=== PATIENT | male | born 1995 | race Caucasian/White ===

== ENCOUNTER 2017-05-10 21:51 | Emergency (ER) | payer OTHER ==
[~2017-05-10] VITALS: Ht 172.7 cm; Wt 56.5 kg
[2017-05-10 21:58] VITALS: BP 151/74; PULSE 99; RESP 14; TEMP 98.8; O2SAT 100
[2017-05-10] MEDS ORDERED: LISD1CAP PO (22:17)
[2017-05-10] MEDS ORDERED: LEXA5TAB PO (22:17)
[2017-05-10] MEDS ORDERED: ALPR.25 PO (22:17)
[2017-05-10] MEDS ORDERED: LOPE-1 PO (22:17)
[2017-05-10] MEDS ORDERED: ACETAMINOPHEN/HYDROcodone 325 MG/5 MG TAB PO ONE (22:30)
[2017-05-10] MEDS ORDERED: IBUP800T23 PO (22:35)
--- NOTE | 2017-05-10 22:35 | PD ---
HPI Chief Complaint: Pain: Acute or Chronic Time Seen by Provider: 22:13 Travel History International Travel<30 days: No Contact w/Intl Traveler<30days: No Traveled to known affect area: No History of Present Illness HPI 21-year-old male presents to the emergency room for evaluation of bilateral wrist and hand pain for the past 2 months. Pain is localized to the bilateral knuckles with numbness and tingling in the tips of his fingers. Patient has been diagnosed with carpal tunnel syndrome and saw an orthopedist several months ago who prescribed Tylenol 3. States Tylenol No. 3 helps him significantly. He has not taken anything else. Pain is worse at night and keeps him up. He states it seems to have been exacerbated over the past 2 days with all the driving he has been doing. He works as a arc and gas welder. PFSH Past Medical History ADHD: Yes Anxiety: Yes Depression: Yes Gastrointestinal Disorders: Yes (IBS) Tetanus Vaccination: < 5 Years Influenza Vaccination: No Social History Alcohol Use: Yes (SOCIAL) Tobacco Use: Yes (1 PPD) Substance Use: No Allergies-Medications (Allergen,Severity, Reaction): Coded Allergies: tramadol (Verified Allergy, Intermediate, Diarrhea, 05/10/17) Reported Meds & Prescriptions Reported Meds & Active Scripts Active Reported Vyvanse (Lisdexamfetamine Dimesylate) 10 Mg Cap Unknown Dose PO DAILY Imodium A-D (Loperamide HCl) 2 Mg Capsule 2 Mg PO DIRECTED PRN One capsule after each loose stool. Not to exceed 8 tablets per day. Lexapro (Escitalopram Oxalate) 5 Mg Tab Unknown Dose PO DAILY Xanax (Alprazolam) 0.25 Mg Tab Unknown Dose PO DIRECTED PRN Review of Systems Except as stated in HPI: all other systems reviewed are Neg Physical Exam Narrative GENERAL: Well-nourished, well-developed male in no acute distress. Afebrile. Ambulatory. SKIN: Focused skin assessment warm/dry. No erythema or ecchymosis. HEAD: Normocephalic. EYES: No scleral icterus. No injection or drainage. NECK: Supple, trachea midline. No JVD or lymphadenopathy. CARDIOVASCULAR: Regular rate and rhythm without murmurs, gallops, or rubs. RESPIRATORY: Breath sounds equal bilaterally. No accessory muscle use. MUSCULOSKELETAL: No cyanosis, or edema. Positive Tinel and Phalen sign. Less than 2 second refill distally. Full range motion of bilateral hands but with pain. Data Data Last Documented VS Vital Signs Date Time Temp Pulse Resp B/P (MAP) Pulse Ox O2 Delivery O2 Flow Rate FiO2 05/10/17 21:58 98.8 99 14 151/74 (99) 100 MDM Medical Decision Making Medical Screen Exam Complete: Yes Emergency Medical Condition: Yes Medical Record Reviewed: Yes Differential Diagnosis Carpal tunnel syndrome, chronic pain, muscle strain, spasm Narrative Course 21-year-old male presents to the emergency room for evaluation of bilateral wrist and hand pain for the past several months person 2 days ago. Patient believes his symptoms have been exacerbated by driving. Patient has been diagnosed with carpal tunnel syndrome and wears bilateral wrist braces. States Tylenol No. 3 seems to help the most. He was offered Toradol but declined stating he doesn't believe his insurance will cover it and he does not like shots. Patient was told it is against emergency room policy to prescribe narcotic medications for chronic conditions. He will be given 1 dose of Lortab in the emergency room and told to follow-up with his term management. Told to return for emergent or urgent conditions. He understands and agrees to plan. Diagnosis Primary Impression: Carpal tunnel syndrome Qualified Codes: G56.03 - Carpal tunnel syndrome, bilateral upper limbs Referrals: Primary Care Physician Additional Instructions: Rest and drink plenty of fluids. Wear splints. Take ibuprofen with food as directed, as needed for pain. Apply ice to the affected area for 20 minutes at a time, as needed for pain and swelling. Follow-up with a primary care physician. Return to the emergency room for worsening symptoms. Med/Other Pt SpecificInfo: Prescription(s) given Disposition: 01 DISCHARGE HOME Condition: Stable Juanita Fuentes May 10, 2017 22:35
== END 2017-05-10 23:01 | disposition home or self-care (01) ==
LOC: PHEFT 21:51
DX: G56.03 Carpal tunnel syndrome, bilateral upper limbs (principal); F17.200 Nicotine dependence, unspecified, uncomplicated; Z86.59 Personal history of other mental and behavioral disorders; Z87.19 Personal history of other diseases of the digestive system
CPT/HCPCS: 99283